=== PATIENT | male | born 1955 | race African-American/Black ===

== ENCOUNTER 2017-08-09 12:55 | Emergency (ER) | payer OTHER ==
[~2017-08-09] VITALS: Ht 177.8 cm; Wt 72.6 kg
[2017-08-09 13:00] VITALS: BP 150/92
[2017-08-09] MEDS ORDERED: NACL 0.9% 1,000 ML IV ONE ×2 (13:20→14:55)
--- NOTE | 2017-08-09 13:20 | NUR ---
PATIENT PRESENTS TO ED WITH generalized weakness,n/v/d, abdominal pain x1 wk . SKIN IS PINK/WARM/DRY; AAOX4 WITH EVEN AND STEADY GAIT; LUNGS CLEAR BL; HR EVEN AND REGULAR; PT DENIES ANY FEVER, CP, SOB, OR COUGH AT THIS TIME; PATIENT STATES PAIN OF 7/10 AT THIS TIME; VSS; PATIENT POSITIONED FOR COMFORT; HOB ELEVATED; BEDRAILS UP X2; BED DOWN. ER MD MADE AWARE OF PT STATUS.
--- NOTE | 2017-08-09 13:33 | NUR ---
unable to provide urine sample at this time
--- NOTE | 2017-08-09 13:48 | NUR ---
lab collected blood samples---x-ray at bedside
[2017-08-09 13:53] LABS: BASOPHILS # (AUTO) 0.1 K/uL (0.00-0.22); EOSINOPHILS # (AUTO) 0.1 K/uL (0-0.4); EOSINOPHILS % (AUTO) 0.7 % (0.0-4.0); HEMATOCRIT 34.2 % (36-52); HEMOGLOBIN 11.2 g/dL (12.0-18.0); LYMPHOCYTES # (AUTO) 1.7 K/uL (2.0-11.5); LYMPHOCYTES % (AUTO) 14.8 % (20.5-51.1); MEAN CORPUSCULAR HEMOGLOBIN 29 pg (27-31); MEAN CORPUSCULAR HGB CONC 33 g/dL (33-37); MEAN CORPUSCULAR VOLUME 87 fL (80-94); MONOCYTES # (AUTO) 0.4 K/uL (0.8-1.0); MONOCYTES % (AUTO) 3.6 % (1.7-9.3); NEUTROPHILS # (AUTO) 8.9 K/uL (1.8-7.7); NEUTROPHILS % (AUTO) 79.9 % (42.2-75.2); PLATELET COUNT (AUTO) 356 K/uL (140-450); RED BLOOD CELL COUNT(AUTO) 3.92 MIL/uL (4.20-6.10); RED CELL DISTRIBUTION WIDTH 13.5 % (11.6-13.7); WHITE BLOOD COUNT (AUTO) 11.3 K/uL (4.8-10.8)
--- NOTE | 2017-08-09 14:00 | NUR ---
pt taken to shower to wash off dried bowel movement from person----
[2017-08-09 14:02] LABS: CARBON DIOXIDE 26.8 mmol/L (21-32); POTASSIUM 3.8 mmol/L (3.5-5.1)
[2017-08-09 14:06] LABS: PROTHROMBIN TIME 10.3 secs (10.8-13.4)
[2017-08-09 14:08] LABS: ALBUMIN 2.6 g/dL (3.4-5.0); TOTAL BILIRUBIN 0.4 mg/dL (0.0-1.0)
--- NOTE | 2017-08-09 14:28 | NUR ---
returned from shower----pt's area and addis preciado
--- NOTE | 2017-08-09 14:38 | NUR ---
unable to provide urine sample at this time
--- NOTE | 2017-08-09 14:43 | NUR ---
encouraged pt to attempt to provide urine sample---pt became aggitated using profanity--- informed pt behaviour like that or abuse towards staff will not be tolerated. spoke with pt we understand he is not feeling well but verbal or any type of abuse towards staff will not be acceptable here. pt apologetic, stating "he is 62yrs old and he doesn't mess with any one nor any messes with him". educated pt in the need for the urine is to identified for infection and immediate treatment. also no need for the apologies simply not to repeat that type of beviour. pt agreed. pt accepted cups of water to induce need--preferred cold water.
[2017-08-09 15:24] VITALS: BP 131/85
--- NOTE | 2017-08-09 15:24 | NUR ---
Patient discharged with v/s stable. Written and verbal after care instructions given and explained. Patient alert, oriented and verbalized understanding of instructions. Ambulatory with steady gait. All questions addressed prior to discharge. ID band removed. Patient advised to follow up with PMD. Rx of Cipro and Imodium given. Patient educated on indication of medication including possible reaction and side effects. Opportunity to ask questions provided and answered. Patient given community resource packet.
== END 2017-08-09 15:24 | disposition home or self-care (01) ==
LOC: MED 12:55
DX: R19.7 Diarrhea, unspecified (principal); R53.1 Weakness; R11.2 Nausea with vomiting, unspecified; F17.200 Nicotine dependence, unspecified, uncomplicated; Z91.041 Radiographic dye allergy status
CPT/HCPCS: 36415; 71045; 80053; 82550; 82553; 83605; 83880; 84484; 85025; 85610; 85730; 87040; 93005; 96360; 99285; J7030; Q0092

== ENCOUNTER 2018-03-04 12:58 | Inpatient (IN) | payer OTHER ==
[~2018-03-04] VITALS: Ht 172.7 cm; Wt 74.8 kg
[2018-03-04 13:03] VITALS: BP 127/84
[2018-03-04] MEDS ORDERED: NACL 0.9% 500 ML IV SCH (13:57)
[2018-03-04] MEDS ORDERED: CLINDAMYCIN 900 MG in DEXTROSE 5% 100 ML IV ONE (14:00)
[2018-03-04] MEDS ORDERED: CLINDAMYCIN 900 MG/6 ML VIAL IV ONE (14:37)
[2018-03-04 16:40] LABS: BASOPHILS # (AUTO) 0.1 K/uL (0.00-0.22); BASOPHILS % (AUTO) 1.9 % (0.0-2.0); EOSINOPHILS # (AUTO) 0.2 K/uL (0-0.4); EOSINOPHILS % (AUTO) 3.3 % (0.0-4.0); HEMATOCRIT 30.9 % (36-52); HEMOGLOBIN 10.4 g/dL (12.0-18.0); LYMPHOCYTES # (AUTO) 1.2 K/uL (2.0-11.5); LYMPHOCYTES % (AUTO) 19.4 % (20.5-51.1); MEAN CORPUSCULAR HEMOGLOBIN 30 pg (27-31); MEAN CORPUSCULAR HGB CONC 34 g/dL (33-37); MEAN CORPUSCULAR VOLUME 88.1 fL (80-94); MONOCYTES # (AUTO) 0.7 K/uL (0.8-1.0); NEUTROPHILS # (AUTO) 3.8 K/uL (1.8-7.7); NEUTROPHILS % (AUTO) 64.4 % (42.2-75.2); PLATELET COUNT (AUTO) 232 K/uL (140-450)
[2018-03-04 16:49] LABS: ANION GAP 10.4 (8-16); CARBON DIOXIDE 29.6 mmol/L (21-32); CREATININE 1.5 mg/dL (0.7-1.3)
[2018-03-04 16:54] LABS: ALBUMIN 3.3 g/dL (3.4-5.0); TOTAL BILIRUBIN 0.3 mg/dL (0.0-1.0)
[2018-03-04] MEDS ORDERED: ONDANSETRON 4 MG/2 ML VIAL IVP PRN (17:15)
[2018-03-04] MEDS ORDERED: DEXTROSE 50% 50 ML SYR IVP PRN (17:15)
[2018-03-04] MEDS ORDERED: ACETAMINOPHEN 325 MG TAB PO PRN (17:15)
[2018-03-04] MEDS ORDERED: HYDROcodone/APAP 5/325 MG 1 TAB TAB PO PRN (17:15)
[2018-03-04] MEDS: NACL 0.9% 1,000 ML IV SCH (18:50)
[2018-03-04 19:00] VITALS: BP 151/96
[2018-03-04] MEDS: BLOOD GLUCOSE MONITORING 1 DEV DEV FS SCH (20:43)
[2018-03-04 21:31] LABS: APPEARANCE,URINE CLEAR (CLEAR); BILIRUBIN,URINE NEGATIVE (NEGATIVE); BLOOD, URINE NEGATIVE (NEGATIVE); COLOR,URINE YELLOW (YELLOW); LEUKOCYTE ESTERASE ,URINE NEGATIVE (NEGATIVE); NITRITE, URINE NEGATIVE (NEGATIVE); UGLUCOSE 3+ (NEGATIVE)
[2018-03-05 00:04] VITALS: BP 147/89
[2018-03-05] MEDS: NACL 0.9% 1,000 ML IV SCH ×3 (06:09→18:35)
[2018-03-05] MEDS: BLOOD GLUCOSE MONITORING 1 DEV DEV FS SCH ×4 (06:10→20:29)
[2018-03-05 07:46] LABS: BASOPHILS # (AUTO) 0.1 K/uL (0.00-0.22); BASOPHILS % (AUTO) 2.3 % (0.0-2.0); EOSINOPHILS # (AUTO) 0.3 K/uL (0-0.4); EOSINOPHILS % (AUTO) 4.7 % (0.0-4.0); HEMATOCRIT 31.9 % (36-52); HEMOGLOBIN 10.9 g/dL (12.0-18.0); LYMPHOCYTES # (AUTO) 1.3 K/uL (2.0-11.5); LYMPHOCYTES % (AUTO) 22.9 % (20.5-51.1); MEAN CORPUSCULAR HEMOGLOBIN 30 pg (27-31); MEAN CORPUSCULAR HGB CONC 34 g/dL (33-37); MEAN CORPUSCULAR VOLUME 87.5 fL (80-94); MONOCYTES # (AUTO) 0.6 K/uL (0.8-1.0); MONOCYTES % (AUTO) 10.4 % (1.7-9.3); NEUTROPHILS # (AUTO) 3.4 K/uL (1.8-7.7); NEUTROPHILS % (AUTO) 59.7 % (42.2-75.2); PLATELET COUNT (AUTO) 234 K/uL (140-450); RED BLOOD CELL COUNT(AUTO) 3.65 MIL/uL (4.20-6.10); RED CELL DISTRIBUTION WIDTH 13.6 % (11.6-13.7); WHITE BLOOD COUNT (AUTO) 5.7 K/uL (4.8-10.8)
[2018-03-05 08:00] VITALS: BP 155/82
[2018-03-05 08:10] LABS: ANION GAP 6.6 (8-16); CARBON DIOXIDE 30.3 mmol/L (21-32); POTASSIUM 4.9 mmol/L (3.5-5.1)
[2018-03-05] MEDS: glipiZIDE ER 5 MG TABER PO SCH (08:13)
[2018-03-05] MEDS: ENOXAPARIN 40 MG/0.4 ML SYR SUBQ SCH (08:17)
[2018-03-05 12:00] VITALS: BP 135/74
[2018-03-05] MEDS ORDERED: ceFAZolin 1,000 MG VIAL ONE (20:15)
[2018-03-05] MEDS: INSULIN LISPRO SLIDING SCALE 100 UNITS/ML VIAL SUBQ PRN (20:28)
[2018-03-05] MEDS ORDERED: VANCOMYCIN PER PHARMACY MC PRN (21:00)
[2018-03-05] MEDS ORDERED: VANCOMYCIN 1,000 MG VIAL ONE (21:25)
[2018-03-05] MEDS ORDERED: VANCOMYCIN 1,000 MG in NACL 0.9% 250 ML IV SCH (21:30)
[2018-03-06] VITALS: BP 148/84
[2018-03-06] MEDS: BLOOD GLUCOSE MONITORING 1 DEV DEV FS SCH ×2 (06:29→12:03)
[2018-03-06] MEDS: INSULIN LISPRO SLIDING SCALE 100 UNITS/ML VIAL SUBQ PRN (06:30)
[2018-03-06] MEDS: NACL 0.9% 1,000 ML IV SCH (07:26)
[2018-03-06 08:00] VITALS: BP 146/88
[2018-03-06] MEDS: glipiZIDE ER 5 MG TABER PO SCH (08:00)
[2018-03-06] MEDS ORDERED: metFORMIN 500 MG TAB PO SCH (08:00)
[2018-03-06] MEDS: ENOXAPARIN 40 MG/0.4 ML SYR SUBQ SCH (08:35)
[2018-03-06] MEDS ORDERED: VANCOMYCIN 750 MG in DEXTROSE 5% 250 ML IV SCH (09:00)
[2018-03-06] MEDS ORDERED: LISINOPRIL 10 MG TAB PO SCH (09:00)
[2018-03-06] MEDS ORDERED: THERAHONEY WOUND DRESSING TP SCH (13:00)
[2018-03-13] MEDS ORDERED: SIMV5TAB83 PO (10:25)
== END 2018-03-06 15:35 | disposition left against medical advice (07) | DRG 383 ==
LOC: MED 12:58 → MTU 17:19
PROVIDERS: ADMIT Internal Medicine; ATTEND Internal Medicine
DX: L03.115 Cellulitis of right lower limb (principal); N17.9 Acute kidney failure, unspecified; R65.10 Systemic inflammatory response syndrome (SIRS) of non-infectious origin without acute organ dysfunction; E11.9 Type 2 diabetes mellitus without complications; E78.5 Hyperlipidemia, unspecified; F12.90 Cannabis use, unspecified, uncomplicated; I10 Essential (primary) hypertension; E78.00 Pure hypercholesterolemia, unspecified; F17.210 Nicotine dependence, cigarettes, uncomplicated; Z53.21 Procedure and treatment not carried out due to patient leaving prior to being seen by health care provider; Z59.0 Homelessness; Z88.3 Allergy status to other anti-infective agents; Z91.048 Other nonmedicinal substance allergy status; Z79.84 Long term (current) use of oral hypoglycemic drugs; Z91.041 Radiographic dye allergy status
CPT/HCPCS: 36415; 73562; 80048; 80053; 81003; 82948; 83036; 85025; 87040; 87070; 87081; 87186; 90715; 93971; 96365; 99285; J0690; J1650; J1815; J3370; J3490; J7030; J7060; Q0092

== ENCOUNTER 2018-03-12 15:58 | Inpatient (IN) | payer OTHER ==
--- NOTE | 2018-03-08 21:00 | NUR ---
ZOCOR AND IV ABT GIEN ORDERED. PT F/S IS 211 , PT REFUSES COVERAGE. PT IS ON METFORMIN NO C/O OF PAINI OR DISTRESS,
[~2018-03-12] VITALS: Ht 175.3 cm; Wt 79.8 kg
[2018-03-12 16:05] VITALS: BP 108/69
--- NOTE | 2018-03-12 16:40 | NUR ---
63/M HOMELESS bib self with c/o right knee pain d/t to wound and right lower leg swelling. Patient was admitted here last week and AMA on 03/06/18. Patient denies any recent fevers, vomitting, or chills. hx--COPD, HTN, DM. AAOX4 WITH EVEN AND UNSTEADY GAIT; LUNGS CLEAR BL. PT DENIES ANY FEVER, CP, SOB, OR COUGH AT THIS TIME; PATIENT STATES PAIN OF 5/10 AT THIS TIME. PATIENT POSITIONED FOR COMFORT; HOB ELEVATED; BEDRAILS UP X2; BED DOWN. ER MD MADE AWARE OF PT STATUS.
[2018-03-12] MEDS ORDERED: NACL 0.9% 2,000 ML IV SCH (17:02)
[2018-03-12] MEDS ORDERED: PIPERACILLIN/TAZOBACTAM 3.375 GM in DEXT 5% MINI-BAG PLUS 50 ML IV ONE (17:05)
[2018-03-12] MEDS ORDERED: PIPERACILLIN/TAZOBACTAM 3.375 GM VIAL IV ONE (17:20)
[2018-03-12 18:04] LABS: BASOPHILS # (AUTO) 0.2 K/uL (0.00-0.22); BASOPHILS % (AUTO) 2.6 % (0.0-2.0); EOSINOPHILS # (AUTO) 0.1 K/uL (0-0.4); EOSINOPHILS % (AUTO) 2.4 % (0.0-4.0); HEMOGLOBIN 10.1 g/dL (12.0-18.0); LYMPHOCYTES # (AUTO) 1.6 K/uL (2.0-11.5); LYMPHOCYTES % (AUTO) 26.1 % (20.5-51.1); MEAN CORPUSCULAR HEMOGLOBIN 30 pg (27-31); MEAN CORPUSCULAR HGB CONC 34 g/dL (33-37); MEAN CORPUSCULAR VOLUME 88.1 fL (80-94); MONOCYTES # (AUTO) 0.6 K/uL (0.8-1.0); MONOCYTES % (AUTO) 10.4 % (1.7-9.3); NEUTROPHILS # (AUTO) 3.5 K/uL (1.8-7.7); NEUTROPHILS % (AUTO) 58.5 % (42.2-75.2); PLATELET COUNT (AUTO) 288 K/uL (140-450); RED BLOOD CELL COUNT(AUTO) 3.41 MIL/uL (4.20-6.10); RED CELL DISTRIBUTION WIDTH 14.2 % (11.6-13.7); WHITE BLOOD COUNT (AUTO) 6.1 K/uL (4.8-10.8)
[2018-03-12 18:21] LABS: PROTHROMBIN TIME 9.9 secs (10.8-13.4)
[2018-03-12 18:33] LABS: ACETONE, SERUM NEGATIVE (NEGATIVE)
[2018-03-12 18:34] LABS: ALBUMIN 3.4 g/dL (3.4-5.0); ANION GAP 7.7 (8-16); ASPARTATE AMINOTRANSFERASE 15 U/L (15-37); CARBON DIOXIDE 29.7 mmol/L (21-32); CHLORIDE 101 mmol/L (98-107); CREATININE 1.6 mg/dL (0.7-1.3); GFR ARICAN-AMERICAN 57 mL/min (>90); GLUCOSE 263 mg/dL (74-106); MAGNESIUM 2.1 mg/dL (1.8-2.4); POTASSIUM 4.4 mmol/L (3.5-5.1); SODIUM SERUM 134 mmol/L (136-145); TOTAL BILIRUBIN 0.4 mg/dL (0.0-1.0); UREA NITROGEN, BLOOD 19 mg/dL (7-18)
--- NOTE | 2018-03-12 18:44 | NUR ---
PT STATED UNABLE TO PROVIDE URINE AT THIS TIME.
--- NOTE | 2018-03-12 18:44 | NUR ---
Christianne amador in [facility] - 03/12/18 at 1849 by MED1 PT STATED UAABLE TO PROVIDE URINE AT THIS TIME.
--- NOTE | 2018-03-12 18:55 | NUR ---
Patient will be admitted to care of DR. FOUNTAIN. Admited to MED SURG. Will go to room 113. Belongings list completed. Report to SILVESTRE GARCIA.
--- NOTE | 2018-03-12 18:58 | NUR ---
pt taken to floor by khanh patricia and gordon hernandes
[2018-03-12 19:05] VITALS: BP 151/92
--- NOTE | 2018-03-12 19:05 | NUR ---
RECEIVED PT FROM ER NURSE ANITA-RADHA. PT AMBULATORY WITH CANE. AOX4, ON ROOM AIR WITH IV SITE ON RIGHT HAND 20G. ORIENTED PT TO ROOM, BATHROOM, BED, AND CALL LIGHT SYSTEM. DISCUSSED PLAN OF CARE AND PT VERBALIZED UNDERSTANDING. NO S/S OF RESPIRATORY DISTRESS OR DISCOMFORT NOTED AT THIS TIME. RIGHT KNEE CELLULITIS WITH 2+ PITTING EDEMA ON RIGHT LOWER EXTREMITY. BLEEDING SCAB NOTED ON LEFT FA. MRSA SWAB AND URINE COLLECTED. RX DRUGS COLLECTED. BED IN LOWEST POSITION, BED BREAKS ON, BOTH SIDE RAILS UP. BED SIDE TABLE AND CALL LIGHT ARE WITHIN REACH. WILL CONTINUE TO MONITOR.
--- NOTE | 2018-03-12 19:05 | NUR ---
VITAL SIGNS TAKEN AND TOLERATED WELL. ELEVATED BP NOTED. NO S/S OF RESPIRATORY DISTRESS OR DISCOMFORT NOTED AT THIS TIME. WILL CONTINUE TO MONITOR.
[2018-03-12 20:19] LABS: APPEARANCE,URINE CLEAR (CLEAR); BILIRUBIN,URINE NEGATIVE (NEGATIVE); BLOOD, URINE NEGATIVE (NEGATIVE); COLOR,URINE YELLOW (YELLOW); LEUKOCYTE ESTERASE ,URINE NEGATIVE (NEGATIVE); NITRITE, URINE NEGATIVE (NEGATIVE); PH,URINE 6.5 (5.0-9.0); UGLUCOSE 2+ (NEGATIVE)
[2018-03-12] MEDS ORDERED: ACETAMINOPHEN 325 MG TAB PO PRN (21:50)
[2018-03-12] MEDS ORDERED: HYDROcodone/APAP 5/325 MG 1 TAB TAB PO PRN (21:50)
[2018-03-12] MEDS ORDERED: INSULIN LISPRO SLIDING SCALE 100 UNITS/ML VIAL SUBQ SCH (21:55)
[2018-03-12] MEDS ORDERED: DEXTROSE 50% 50 ML SYR IVP PRN (21:55)
[2018-03-12] MEDS: NACL 0.9% 1,000 ML IV SCH (22:09)
--- NOTE | 2018-03-12 22:10 | NUR ---
BLOOD GLUCOSE 307- PT REFUSED INSULIN STATING, "I NEVER USE INSULIN, I TAKE METFORMIN." IVF HUNG AND TOLERATING WELL. NO S/S OF RESPIRATORY DISTRESS OR DISCOMFORT NOTED AT THIS TIME. WILL CONTINUE TO MONITOR.
[2018-03-12] MEDS ORDERED: INSULIN LISPRO SLIDING SCALE 100 UNITS/ML VIAL SUBQ PRN (23:50)
[2018-03-13] VITALS: BP 133/77
--- NOTE | 2018-03-13 | NUR ---
VITAL SIGNS TAKEN BY COMMERCIAL LOAN UNDERWRITER NURSE LUCILA. NO S/S OF RESPIRATORY DISTRESS OR DISCOMFORT NOTED AT THIS TIME. WILL CONTINUE TO MONITOR.
--- NOTE | 2018-03-13 | NUR ---
VITAL SIGNS TAKEN AND TOLERATED WELL. NO S/S OF RESPIRATORY DISTRESS OR DISCOMFORT NOTED AT THIS TIME. WILL CONTINUE TO MONITOR.
--- NOTE | 2018-03-13 02:00 | NUR ---
PT CONTINUE TO SLEEP AT THIS TIME. NO S/S OF RESPIRATORY DISTRESS OR DISCOMFORT NOTED AT THIS TIME. WILL CONTINUE TO MONITOR.
--- NOTE | 2018-03-13 04:00 | NUR ---
PT SLEEPING IN BED. NO S/S OF RESPIRATORY DISTRESS OR DISCOMFORT NOTED AT THIS TIME. WILL CONTINUE TO MONITOR.
[2018-03-13] MEDS ORDERED: PIPERACILLIN/TAZOBACTAM 3.375 GM VIAL IV ONE (04:49)
[2018-03-13] MEDS: PIPER/TAZO 3.375GM/D5W PREMIX 50 ML IV SCH ×3 (04:51→21:18)
--- NOTE | 2018-03-13 04:55 | NUR ---
SCHEDULED MEDICATION ZOSYN GIVEN AND TOLERATED WELL. NO S/S OF RESPIRATORY DISTRESS OR DISCOMFORT NOTED AT THIS TIME. WILL CONTINUE TO MONITOR.
[2018-03-13] MEDS: BLOOD GLUCOSE MONITORING 1 DEV DEV FS SCH ×4 (06:34→21:12)
--- NOTE | 2018-03-13 06:35 | NUR ---
BLOOD GLUCOSE 223- PT CONTINUES TO REFUSE INSULIN COVERAGE.
--- NOTE | 2018-03-13 07:29 | NUR ---
ENDORSED PT CARE TO DAY SHIFT NURSE SEEMA FOR CONTINUITY OF CARE.
[2018-03-13 07:50] LABS: BASOPHILS # (AUTO) 0.1 K/uL (0.00-0.22); BASOPHILS % (AUTO) 2.7 % (0.0-2.0); EOSINOPHILS # (AUTO) 0.2 K/uL (0-0.4); EOSINOPHILS % (AUTO) 3.6 % (0.0-4.0); HEMATOCRIT 29.7 % (36-52); HEMOGLOBIN 10.2 g/dL (12.0-18.0); LYMPHOCYTES # (AUTO) 1.6 K/uL (2.0-11.5); LYMPHOCYTES % (AUTO) 30.1 % (20.5-51.1); MEAN CORPUSCULAR HEMOGLOBIN 30 pg (27-31); MEAN CORPUSCULAR HGB CONC 34 g/dL (33-37); MONOCYTES # (AUTO) 0.5 K/uL (0.8-1.0); MONOCYTES % (AUTO) 9.6 % (1.7-9.3); NEUTROPHILS # (AUTO) 2.9 K/uL (1.8-7.7); PLATELET COUNT (AUTO) 255 K/uL (140-450); RED BLOOD CELL COUNT(AUTO) 3.38 MIL/uL (4.20-6.10); WHITE BLOOD COUNT (AUTO) 5.4 K/uL (4.8-10.8)
[2018-03-13 08:00] VITALS: BP 149/82
[2018-03-13 08:15] LABS: ALBUMIN 2.8 g/dL (3.4-5.0); ANION GAP 5.7 (8-16); CARBON DIOXIDE 29.7 mmol/L (21-32); CREATININE 1.1 mg/dL (0.7-1.3); POTASSIUM 4.4 mmol/L (3.5-5.1); TOTAL BILIRUBIN 0.4 mg/dL (0.0-1.0)
--- NOTE | 2018-03-13 09:05 | NUR ---
PATIENT HAS BEEN SCREENED AND CATEGORIZED HIGH NUTRITION RISK. PATIENT WILL BE SEEN WITHIN 1-2 DAYS OF ADMISSION. 03/13/18 03/14/[address]
[2018-03-13] MEDS: NACL 0.9% 1,000 ML IV SCH ×2 (09:45→17:50)
[2018-03-13] MEDS ORDERED: ASPI81CT89 PO (10:25)
[2018-03-13] MEDS ORDERED: SIMV5TAB1 PO (10:25)
[2018-03-13] MEDS ORDERED: METF500T PO (10:25)
[2018-03-13] MEDS ORDERED: LISI2.5T5 PO (10:25)
[2018-03-13] MEDS ORDERED: ATRMDI IH (10:25)
--- NOTE | 2018-03-13 11:14 | NUR ---
WOUND CARE EVALUATION NOTE: REASON FOR EVALUATION: RIGHT KNEE WOUND SKIN ASSESSMENT DONE WITH THIS 63 Y/O MALE PT ADMITTED TO [facility] WITH INITIAL DX RIGHT KNEE WOUND. PAST MEDICAL HX INCLUDES HTN, DM AND RIGHT KNEE WOUND MORE THAN ONE MONTH AGO. PT. WAS CONSULTED ABOUT A WEEK AGO AND AMA. ALL ABOVE INFORMATION OBTAINED FROM ADMISSION H&P AND PT. PT IS AAX4. LABS ARE WBC 5.4, H/H 10.2/29.7, GLUCOSE 214 AND ALBUMIN 2.8. PT IS AWAKE.PT. REFUSES TO BE ASSESSED OTHER PART OF BODY EXCEPT RLE. PLAN OF CARE DISCUSSED WITH PRIMARY NURSE AND PT. PT VERBALIZES UNDERSTANDING AND STATE THAT HE IS WILLING TO FOLLOW UP RECOMMENDATIONS THIS VISIT. INTEGUMENTARY: -RIGHT PATELLA WOUND 5.5X4 CM, WOUND BED 100% COVERED WITH SOFT, THICK, BROWN SLOUGH, SMALL AMOUNT PURULENT DRAINAGE FROM WOUND EDGE, MILD ODOR, HERMILA-WOUND SKIN WITH ERYTHREDEMA,PAIN 3/10 BEARABLE. RECOMMENDATIONS: -SURGEON CONSULT FOR DEBRIDEMENT -CLEANSE WITH WOUND CLEANSING SOLUTION PAT DRY, APPLY THERAHONEY SHEET AND COVER WITH DRY COMPOSITE DRESSING QD AND PRN IF SOILING -TURN AND REPOSITION Q2H -CONTINUE TO FOLLOW RD RECOMMENDATIONS ALL ABOVE RECOMMENDATIONS DISCUSSED WITH PRIMARY NURSE. WILL FOLLOW UP PT Q7-10 DAYS. PLEASE CONTACT WOUND CARE NURSE FOR ANY QUESTION AND CHANGE OF WOUND CONDITION. Addendum: 03/13/18 at 1125 by Agustín Gonzalez RN (Grace) -RIGHT KNEE SKIN ALTERATION WITH UN-KNOW ETIOLOGY ADD RECOMMENDATION: -WOUND CULTURE TO RIGHT KNEE WOUND -CLEANSE RIGHT KNEE WOUND WITH WOUND CLEANSING SOLUTION PAT DRY, APPLY THERAHONEY SHEET AND COVER WITH DRY COMPOSITE DRESSING QD AND PRN IF SOILING
--- NOTE | 2018-03-13 12:09 | NUR ---
Basin Finish Operator Tig Welder Note: Patient's tentative discharge plan is to transfer patient to [facility] facility for wound care. I faxed inquiries to [facility] facilities contracted with [facility], [phone], [facility] , and [facility] . Per Jolynn from [phone], unable to accept patient due to patient signing AMA previously [facility] *Per Uma from [facility] , patient has been accepted and may go to room 207, case operator Christina made aware.*
[2018-03-13] MEDS ORDERED: THERAHONEY GEL 42.5 GM TP PRN (12:10)
--- NOTE | 2018-03-13 12:37 | NUR ---
RECEIVED PT REPORT AT BEDSIDE. PT A&OX4. OPEN WOUND NOTED ON THE RIGHT KNEE, MILD DRAINAGE NOTED. NO C/O PAIN AT THIS TIME. BED LOWERED WITH CALL LIGHT WITHIN REACH. WILL CONTINUE TO MONITOR.
[2018-03-13] MEDS ORDERED: THERAHONEY WOUND DRESSING TP SCH (13:00)
--- NOTE | 2018-03-13 13:06 | NUR ---
Math And Sciences Department Chair Note: Patient's tentative discharge plan is to transfer patient to [facility] for wound care. Per Uma from [facility] , patient has been accepted and may go to room 207, accepting physician is , caser in Christina made aware. Electrocardiograph Technician Christina provided me with snf authorization from [facility] [id number], I provided this authorization number to Uma from [facility].
--- NOTE | 2018-03-13 13:27 | NUR ---
CM NOTE ADMISSION CHART REVIEW DONE. INITIAL REVIEW FAXED TO [facility] [phone] NASIR PH# [phone] PER [facility], IF PATIENT GOES TO SNF AUTH# [id number], FOR [facility] AUTH# [id number]
[2018-03-13] MEDS ORDERED: VANCOMYCIN PER PHARMACY MC PRN (13:50)
[2018-03-13] MEDS ORDERED: INSULIN LANTUS 100 UNITS/ML 10 ML VIAL SUBQ SCH (14:18)
--- NOTE | 2018-03-13 15:11 | NUR ---
03/13/18 RD INITIAL ASSESSMENT COMPLETED PLEASE REFER TO NUTRITION ASSESSMENT UNDER CARE ACTIVITY FOR ESTIMATED NUTRITIONAL NEEDS. 1. CONTINUE CCHO 60 DIET TOLERATED. 2. RECOMMEND OSORIO QD AND VIT. C [address] TO FOLLOW-UP 5-7 DAYS, LOW RISK. FAMILIA LACY, RD
[2018-03-13] MEDS: VANCOMYCIN 750 MG in NACL 0.9% 250 ML IV SCH (15:18)
--- NOTE | 2018-03-13 15:28 | NUR ---
PT REFUSING TO RECEIVE INSULIN COVERAGE.
--- NOTE | 2018-03-13 15:30 | NUR ---
PT REFUSING TO RECEIVE INSULIN. PT WAS EDUCATED ON RISKS OF NOT RECEIVING INSULIN, PT STATED "I DO NOT WANT TO TAKE IT."
[2018-03-13] MEDS ORDERED: NON-FORMULARY ITEM (Ipratropium Bromide* (Atrovent Hfa Mdi*) 2 PUFF) IH SCH (17:00)
--- NOTE | 2018-03-13 19:20 | NUR ---
PT REPORT GIVEN AT BEDSIDE. PT ENDORSED IN STABLE CONDITION.
--- NOTE | 2018-03-13 19:21 | NUR ---
RECEIVED REPORT FROM DAY SHIFT NURSE CAMERON-RN AT BEDSIDE. PT AMBULATORY WITH CANE. AOX4, ON ROOM AIR WITH IV SITE ON RIGHT HAND 20G. DISCUSSED PLAN OF CARE AND PT VERBALIZED UNDERSTANDING. NO S/S OF RESPIRATORY DISTRESS OR DISCOMFORT NOTED AT THIS TIME. RIGHT KNEE CELLULITIS WITH 2+ PITTING EDEMA ON RIGHT LOWER EXTREMITY. SCAB NOTED ON LEFT FA. BED IN LOWEST POSITION, BED BREAKS ON, BOTH SIDE RAILS UP. BED SIDE TABLE AND CALL LIGHT ARE WITHIN REACH. WILL CONTINUE TO MONITOR.
[2018-03-13] MEDS ORDERED: LIDOCAINE 1% 500 MG/50 ML VIAL INJ SCH (19:55)
[2018-03-13] MEDS ORDERED: MORPHINE SULFATE 4 MG/ML SYR IVP PRN (19:55)
[2018-03-13 20:00] VITALS: BP 134/73
--- NOTE | 2018-03-13 20:00 | NUR ---
VITAL SIGNS TAKEN AND TOLERATED WELL. BLOOD GLUCOSE 226- PT CONTINUES TO REFUSE INSULIN. NO S/S OF RESPIRATORY DISTRESS OR DISCOMFORT NOTED AT THIS TIME. WILL CONTINUE TO MONITOR.
--- NOTE | 2018-03-13 20:18 | NUR ---
SCHEDULED MEDICATION GIVEN AND TOLERATED WELL. NO S/S OF RESPIRATORY DISTRESS OR DISCOMFORT NOTED AT THIS TIME. WILL CONTINUE TO MONITOR.
[2018-03-13] MEDS: SIMVASTATIN 10 MG TAB PO SCH (21:17)
--- NOTE | 2018-03-13 22:00 | NUR ---
PT SLEEPING IN BED. NO S/S OF RESPIRATORY DISTRESS OR DISCOMFORT NOTED AT THIS TIME. WILL CONTINUE TO MONITOR.
--- NOTE | 2018-03-13 22:26 | NUR ---
UNABLE TO DO EKG AT 1849. DR ERICKSON DID PROCEDURE BEFORE EKG COULD BE DONE. RT'S WERE BUSY IN ER
[2018-03-14] VITALS: BP 134/72
[2018-03-14] MEDS: NACL 0.9% 1,000 ML IV SCH ×3 (00:18→23:50)
--- NOTE | 2018-03-14 00:20 | NUR ---
IVF HUNG AND AEROBIC WOUND CULTURE TAKEN. PT TOLERATED WELL. NO S/S OF RESPIRATORY DISTRESS OR DISCOMFORT NOTED AT THIS TIME. WILL CONTINUE TO MONITOR.
[2018-03-14] MEDS: ATROVENT HFA INH SCH ×6 (01:23→19:30)
[2018-03-14] MEDS: VANCOMYCIN 750 MG in NACL 0.9% 250 ML IV SCH ×2 (02:48→16:40)
--- NOTE | 2018-03-14 02:48 | NUR ---
SCHEDULED MEDICATION VANCOCIN GIVEN AND TOLERATED WELL. NO S/S OF RESPIRATORY DISTRESS OR DISCOMFORT NOTED AT THIS TIME. WILL CONTINUE TO MONITOR.
[2018-03-14] MEDS: PIPER/TAZO 3.375GM/D5W PREMIX 50 ML IV SCH ×3 (05:07→22:11)
--- NOTE | 2018-03-14 05:07 | NUR ---
SCHEDULED MEDICATION ZOSYN GIVEN AND TOLERATED WELL. NO S/S OF RESPIRATORY DISTRESS OR DISCOMFORT NOTED AT THIS TIME. WILL CONTINUE TO MONITOR.
--- NOTE | 2018-03-14 06:00 | NUR ---
BLOOD GLUCOSE 333- PT CONTINUES TO REFUSE INSULIN
[2018-03-14] MEDS: BLOOD GLUCOSE MONITORING 1 DEV DEV FS SCH ×4 (06:25→21:00)
--- NOTE | 2018-03-14 06:32 | NUR ---
SCHEDULED MEDICATION ATROVENT INHALER GIVEN AND TOLERATED WELL. NO S/S OF RESPIRATORY DISTRESS OR DISCOMFORT NOTED AT THIS TIME. WILL CONTINUE TO MONITOR.
--- NOTE | 2018-03-14 07:09 | NUR ---
ENDORSED PT CARE TO DAY SHIFT NURSE ALICE FOR CONTINUITY OF CARE. Addendum: 03/14/18 at 0731 by Brenda Frederick RN DISREGARD.
--- NOTE | 2018-03-14 07:20 | NUR ---
PT REPORT RECEIVED AT BEDSIDE. PT IS SLEEPING, BUT AROUSABLE, A&O X4. PT IS ON ROOM AIR, NO S/S OF DISTRESS NOTED. THE WOUND ON THE RIGHT KNEE IS COVERED WITH CLEAN, DRY DRESSING. NO C/O PAIN OR DISCOMFORT AT THIS TIME. BED IN LOW POSITION, CALL LIGHT WITHIN REACH.
--- NOTE | 2018-03-14 07:24 | NUR ---
ENDORSED PT CARE TO DAY SHIFT NURSE SEEMA FOR CONTINUITY OF CARE.
[2018-03-14 08:00] VITALS: BP 116/75
[2018-03-14] MEDS ORDERED: ASPIRIN 81 MG TAB.CHEW PO SCH (09:00)
[2018-03-14] MEDS ORDERED: NON-FORMULARY ITEM (Lisinopril 1 TAB) PO SCH (09:00)
[2018-03-14] MEDS: ENOXAPARIN 30 MG/0.3 ML SYR SUBQ SCH (09:00)
[2018-03-14] MEDS ORDERED: INSULIN LANTUS 100 UNITS/ML 10 ML VIAL SUBQ SCH (09:00)
[2018-03-14] MEDS: LISINOPRIL 5 MG TAB PO SCH (10:30)
[2018-03-14] MEDS: ASCORBIC ACID 500 MG TAB PO SCH (10:31)
--- NOTE | 2018-03-14 10:35 | NUR ---
BLOOD SUGAR CHECKED, 373. PT STILL REFUSING TO RECEIVE SCHEDULED LANTUS INSULIN. EXPLAINED TO THE PT RISK OF NOT HAVING BLOOD SUGAR CONTROLLED, PT STATES "I DON'T WANT INSULIN." PT REFUSED SCHEDULED ENOXAPARIN. RISKS OF NOT RECEIVING ENOXAPARIN EXPLAINED, PT STILL REFUSED.
--- NOTE | 2018-03-14 12:15 | NUR ---
PT ACCIDENTALLY PULLED OUT HIS IV, NEW IV INSERTED 22 GAUGE, RIGHT HAND.
[2018-03-14 12:50] LABS: BASOPHILS # (AUTO) 0.1 K/uL (0.00-0.22); BASOPHILS % (AUTO) 2.7 % (0.0-2.0); EOSINOPHILS # (AUTO) 0.2 K/uL (0-0.4); EOSINOPHILS % (AUTO) 2.9 % (0.0-4.0); HEMATOCRIT 32.2 % (36-52); HEMOGLOBIN 10.8 g/dL (12.0-18.0); LYMPHOCYTES # (AUTO) 1.4 K/uL (2.0-11.5); LYMPHOCYTES % (AUTO) 25.8 % (20.5-51.1); MEAN CORPUSCULAR HEMOGLOBIN 30 pg (27-31); MEAN CORPUSCULAR HGB CONC 34 g/dL (33-37); MONOCYTES # (AUTO) 0.4 K/uL (0.8-1.0); MONOCYTES % (AUTO) 6.7 % (1.7-9.3); NEUTROPHILS # (AUTO) 3.4 K/uL (1.8-7.7); NEUTROPHILS % (AUTO) 61.9 % (42.2-75.2); PLATELET COUNT (AUTO) 278 K/uL (140-450); RED BLOOD CELL COUNT(AUTO) 3.66 MIL/uL (4.20-6.10); RED CELL DISTRIBUTION WIDTH 13.8 % (11.6-13.7); WHITE BLOOD COUNT (AUTO) 5.6 K/uL (4.8-10.8)
[2018-03-14 13:09] LABS: ALBUMIN 2.8 g/dL (3.4-5.0); CARBON DIOXIDE 30.6 mmol/L (21-32); CREATININE 0.9 mg/dL (0.7-1.3); POTASSIUM 4.6 mmol/L (3.5-5.1); TOTAL BILIRUBIN 0.4 mg/dL (0.0-1.0)
--- NOTE | 2018-03-14 15:30 | NUR ---
PATIENT BEING EVALUATED BY PT
[2018-03-14 16:00] VITALS: BP 146/74
[2018-03-14] MEDS: metFORMIN 500 MG TAB PO SCH (16:38)
--- NOTE | 2018-03-14 17:00 | NUR ---
PT WOUND DRESSING CHANGED, PT TOLERATED WELL, NO C/O PAIN. PHOTO TAKEN, PLACED IN CHART.
--- NOTE | 2018-03-14 19:20 | NUR ---
PT REPORT GIVEN AT BEDSIDE. PT ENDORSED IN STABLE CONDITION. NO S/S OF DISTRESS. BED IN LOW POSITION AND CALL LIGHT WITHIN REACH.
--- NOTE | 2018-03-14 19:30 | NUR ---
RECEIVED, ENDORSEMENT FROM DAYSHIFT NURSE AT BEDSIDE FOR CONTINUITY OF CARE, PT IN STABLE CONDITION.
[2018-03-14] MEDS: SIMVASTATIN 10 MG TAB PO SCH (20:59)
--- NOTE | 2018-03-14 21:00 | NUR ---
PT SITTING UP IN BED AOX 4, DRESSING FOR WOUND DRY AND INTACT NO S/S OF PAIN OR DISTRESS NOTED. V/S FOLLOWS T 98.3 P 76 R 18 B/P 111/66 02 98% ON R/A. F/S 218. PT REFUSED TO HAVE INSULIN COVERAGE. PT EDUCATED REGARDING THE NEED FOR INSULIN. PT VERBALIZED UNDERSTANDING BUT CONTINUED TO REFUSE INSULIN.
--- NOTE | 2018-03-14 23:15 | NUR ---
PT IN BED HOB ELEVATED 45%. BED LOW SIDE RAILS UP AND CALL STEVENSON IN REACH. PT SLEEPING BUT AWOKEN WITH LIGHT TOUCH. NO S/S OF PAIN OR DISTRESS NOTED IV SITE INTACT WITH NO S/S OF INFILTRATION N/S RUNNING AT 100MLS/HR.
--- NOTE | 2018-03-15 01:00 | NUR ---
v/s as follows t 98.5 p 76 r 20 b/p 127/76 02 98% on r/a. pt has no s/s of pain or distress call casanova in reach.
[2018-03-15] MEDS: VANCOMYCIN 750 MG in NACL 0.9% 250 ML IV SCH ×2 (03:00→16:15)
[2018-03-15] MEDS: PIPER/TAZO 3.375GM/D5W PREMIX 50 ML IV SCH ×3 (05:45→21:00)
--- NOTE | 2018-03-15 06:00 | NUR ---
pt f/s was 255, however pt refused insulin coverage. pt is on oral metformin.
[2018-03-15] MEDS: BLOOD GLUCOSE MONITORING 1 DEV DEV FS SCH ×4 (06:50→21:00)
--- NOTE | 2018-03-15 07:30 | NUR ---
endorsement given to dayssdft nurse for continuity of care.
[2018-03-15 07:38] LABS: BASOPHILS # (AUTO) 0.2 K/uL (0.00-0.22); BASOPHILS % (AUTO) 2.5 % (0.0-2.0); EOSINOPHILS # (AUTO) 0.3 K/uL (0-0.4); EOSINOPHILS % (AUTO) 3.9 % (0.0-4.0); HEMATOCRIT 30.9 % (36-52); HEMOGLOBIN 10.4 g/dL (12.0-18.0); LYMPHOCYTES # (AUTO) 1.5 K/uL (2.0-11.5); LYMPHOCYTES % (AUTO) 22.3 % (20.5-51.1); MEAN CORPUSCULAR HEMOGLOBIN 30 pg (27-31); MEAN CORPUSCULAR HGB CONC 34 g/dL (33-37); MEAN CORPUSCULAR VOLUME 88.2 fL (80-94); MONOCYTES # (AUTO) 0.6 K/uL (0.8-1.0); MONOCYTES % (AUTO) 8.9 % (1.7-9.3); NEUTROPHILS # (AUTO) 4.1 K/uL (1.8-7.7); NEUTROPHILS % (AUTO) 62.4 % (42.2-75.2); PLATELET COUNT (AUTO) 268 K/uL (140-450); RED CELL DISTRIBUTION WIDTH 14.1 % (11.6-13.7); WHITE BLOOD COUNT (AUTO) 6.6 K/uL (4.8-10.8)
[2018-03-15 08:00] VITALS: BP 132/81
[2018-03-15 08:03] LABS: ALBUMIN 2.6 g/dL (3.4-5.0); CARBON DIOXIDE 29.3 mmol/L (21-32); CREATININE 0.9 mg/dL (0.7-1.3); POTASSIUM 4.3 mmol/L (3.5-5.1); TOTAL BILIRUBIN 0.2 mg/dL (0.0-1.0)
[2018-03-15] MEDS: metFORMIN 500 MG TAB PO SCH ×2 (08:51→17:27)
[2018-03-15] MEDS: LISINOPRIL 5 MG TAB PO SCH (08:51)
[2018-03-15] MEDS: ASCORBIC ACID 500 MG TAB PO SCH (08:51)
--- NOTE | 2018-03-15 08:57 | NUR ---
ADMINISTERED AM MEDS SCHEDULED TO PT. REFUSED HIS LEVONOX. EDUCATED HIM ON LEVONOX THAT ITS HIS BLOOD THINNER, REQUIRED FOR PT THAT ARE ON BEDREST, PREVENTS FROM FORMING BLOOD CLOT. DENIES MEDS. PT SITTING ON HIS BED, WATCHING TV. STATES HE CAN AMBULATE TO REST BY HIMSELF. ASKED HIM TO USE CALL LIGHT FOR ANY HELP, TO USE RESTROM. CALL LIGHT WITHIN REACH. NO SIGN OF DISTRESS NOTED. BED AT LOWER POSITION. WILL [id number] TO MONITOR PT.
[2018-03-15] MEDS ORDERED: INSULIN LANTUS 100 UNITS/ML 10 ML VIAL SUBQ SCH (09:00)
[2018-03-15] MEDS: ENOXAPARIN 30 MG/0.3 ML SYR SUBQ SCH (09:00)
[2018-03-15] MEDS: NACL 0.9% 1,000 ML IV SCH ×2 (09:50→19:50)
--- NOTE | 2018-03-15 12:11 | NUR ---
CHECKED ON PT. BS 278. REFUSED INSULIN. EDUCATED HIM THAT HIS BS IS HIGH NEEDS INSULIN. STATES TO DROP THE TOPIC, NOT COMPLIANCE WITH INSULIN COVERAGE. ADMINISTERED ZOSYN TI PT. WILL CONTINUE TO MONITOR PT.
[2018-03-15] MEDS: ATROVENT HFA INH SCH ×4 (13:15→19:30)
[2018-03-15 16:00] VITALS: BP 124/74
--- NOTE | 2018-03-15 16:30 | NUR ---
CHECKED ON PT. BS 238. DENIES INSULIN. EDUCATED ABOUT NEED OF INSULIN. STILL DENIES INSULIN. VS NORMAL NOTED. PT WALKING , DENIES PAIN ON HIS KNEE. WOUND NURSE AT BEDSIDE. WILL CONTINUE TO MONITOR PT.
--- NOTE | 2018-03-15 17:58 | NUR ---
WOUND CARE RE-EVALUATION NOTE REASON FOR RE-EVALUATION: S/P DEBRIDEMENT RIGHT KNEE WOUND. INTEGUMENTARY: -RIGHT PATELLA WOUND 5.5X4X0.2CM, WOUND BED 30% COVERED WITH SOFT YELLOW SLOUGH, SMALL AMOUNT SEROSANGUINEOUS DRAINAGE, WOUND EDGE WELL DEFINED, NO ODOR, HERMILA-WOUND SKIN SLIGHTLY ERYTHREDEMA, NO PAIN. RECOMMENDATIONS: -MAY HAVE SNF PLACEMENT FOR WOUND CARE UPON DISCHARGED -CLEANSE WITH WOUND CLEANSING SOLUTION PAT DRY, APPLY THERAHONEY SHEET AND COVER WITH DRY COMPOSITE DRESSING QD AND PRN IF SOILING -TURN AND REPOSITION Q2H -CONTINUE TO FOLLOW RD RECOMMENDATIONS ALL ABOVE RECOMMENDATIONS DISCUSSED WITH PRIMARY NURSE. WILL FOLLOW UP PT Q7-10 DAYS. PLEASE CONTACT WOUND CARE NURSE FOR ANY QUESTION AND CHANGE OF WOUND CONDITION.
--- NOTE | 2018-03-15 18:24 | NUR ---
CHECKED ON PT. IV PUMP BEEPING. FLUSHED BOTH LINE AND THE IV ACCESS SITE. PT DOESNT WANT TO START THE NEW IV LINE. EDUCATED HIM THAT VANCOMYCIN IS ESSENTIAL FOR HIS INFECTION TO BE TREATED. PT ASKING TO DISCONTINUE THE IV LINE. INFORMED THAT ITS FOR HIS INFECTION. WILL MONITOR THE IV INFUSING ON THE PT. PT ASKING THE ALTERNATE TO IV. INFORMED THAT IV MEDS MORE EFFECTIVE THAN PO FORM. WILL CONTINUE TO ACCESS THE IV INFUSION. WILL CONTINUE TO MONITOR PT.
--- NOTE | 2018-03-15 19:14 | NUR ---
ENDORSED PT TO PM NURSE. PT IN STABLE CONDITION.
--- NOTE | 2018-03-15 19:15 | NUR ---
RECEIVED ENDORSEMENT FROM SARAH GARCIA DAYSHIFT NURSE FOR CONTINUITY OF CARE. PT IN STABLE CONDITION.
[2018-03-15] MEDS: SIMVASTATIN 10 MG TAB PO SCH (21:55)
--- NOTE | 2018-03-16 01:00 | NUR ---
PT SLEEPING NO ADVERSE EFFECTS OF ABT, NO C/O VOICED V/S IN NORMAL LIMITS.
--- NOTE | 2018-03-16 03:00 | NUR ---
PT IN BED NO S/S OF PAIN OR DISTRESS IV SITE FLUSHED PATENT LITZY HESTER ORDERED.
[2018-03-16] MEDS: VANCOMYCIN 750 MG in NACL 0.9% 250 ML IV SCH (03:55)
--- NOTE | 2018-03-16 06:00 | NUR ---
PT VOIDED 750 OF YELLOW URINE IV RUNING ORDERED.
[2018-03-16] MEDS: PIPER/TAZO 3.375GM/D5W PREMIX 50 ML IV SCH ×2 (06:17→12:29)
[2018-03-16] MEDS: NACL 0.9% 1,000 ML IV SCH ×2 (06:21→15:50)
[2018-03-16] MEDS: BLOOD GLUCOSE MONITORING 1 DEV DEV FS SCH ×3 (06:24→16:30)
--- NOTE | 2018-03-16 07:20 | NUR ---
RECEIVED REPORT FROM THE NIGHTSHIFT NURSE AT BEDSIDE FOR CONTINUITY OF CARE. PT IS AWAKE AND ORIENTED. INTRODUCED MYSELF AND UPDATED THE BOARD. PT IS ON ROOM AIR. V/S WITHIN NORMAL RANGE. DENIES PAIN. PER BODY WIRER NURSE, PT AMBULATES WITH CANE. PT HAS KERLIX WRAP ON R KNEE. IT IS CLEAN AND INTACT. LBM 03/15. IV ON R WRIST 22G NS AT 100ML. HIGH PRESSURE ON PUMP. PER BODY WIRER, ITS POSITIONAL. PT REFUSED A NEW IV SITE. WILL CONTINUE TO MONITOR PT.
[2018-03-16] MEDS: ATROVENT HFA INH SCH ×3 (07:30→15:30)
[2018-03-16 08:00] VITALS: BP 140/68
[2018-03-16 08:31] LABS: BASOPHILS # (AUTO) 0.2 K/uL (0.00-0.22); BASOPHILS % (AUTO) 2.7 % (0.0-2.0); EOSINOPHILS # (AUTO) 0.3 K/uL (0-0.4); EOSINOPHILS % (AUTO) 4.3 % (0.0-4.0); HEMATOCRIT 28.7 % (36-52); HEMOGLOBIN 9.9 g/dL (12.0-18.0); LYMPHOCYTES # (AUTO) 1.9 K/uL (2.0-11.5); LYMPHOCYTES % (AUTO) 28.9 % (20.5-51.1); MEAN CORPUSCULAR HEMOGLOBIN 31 pg (27-31); MEAN CORPUSCULAR HGB CONC 35 g/dL (33-37); MEAN CORPUSCULAR VOLUME 88.5 fL (80-94); MONOCYTES # (AUTO) 0.6 K/uL (0.8-1.0); MONOCYTES % (AUTO) 8.6 % (1.7-9.3); NEUTROPHILS # (AUTO) 3.6 K/uL (1.8-7.7); NEUTROPHILS % (AUTO) 55.5 % (42.2-75.2); PLATELET COUNT (AUTO) 251 K/uL (140-450); RED BLOOD CELL COUNT(AUTO) 3.24 MIL/uL (4.20-6.10); WHITE BLOOD COUNT (AUTO) 6.5 K/uL (4.8-10.8)
[2018-03-16] MEDS: LISINOPRIL 5 MG TAB PO SCH (08:59)
[2018-03-16] MEDS: metFORMIN 500 MG TAB PO SCH ×2 (09:00→17:55)
[2018-03-16] MEDS: ENOXAPARIN 30 MG/0.3 ML SYR SUBQ SCH ×2 (09:00→09:02)
[2018-03-16] MEDS: ASCORBIC ACID 500 MG TAB PO SCH (09:00)
--- NOTE | 2018-03-16 09:05 | NUR ---
ADMINISTERED MORNING SCHEDULED MED. PT REFUSED LOVENOX. EDUCATED PT RE MED AND RISK OF NOT GETTING IT. PT VERBALIZED UNDERSTANDING. REFUSED INHALER. PT TOLERATED WELL. WILL CONTINUE TO MONITOR PT.
[2018-03-16 09:17] LABS: ALBUMIN 2.5 g/dL (3.4-5.0); ANION GAP 8.7 (8-16); CARBON DIOXIDE 29.7 mmol/L (21-32); CREATININE 0.9 mg/dL (0.7-1.3); POTASSIUM 4.4 mmol/L (3.5-5.1); TOTAL BILIRUBIN 0.3 mg/dL (0.0-1.0)
--- NOTE | 2018-03-16 10:14 | NUR ---
General Practice Note: [place] [facility] [place], accepting physician is , patient's nurse Meggan made aware. Addendum: 03/16/18 at 1014 by Vicky Ortiz SS General Practice Note: [place] [facility] [place] [facility], accepting physician is , patient's nurse Meggan made aware.
--- NOTE | 2018-03-16 11:30 | NUR ---
REFUSED BS CHECK.
--- NOTE | 2018-03-16 12:09 | NUR ---
CM NOTE SPOKE WITH [facility] AND GAVE HER A VERBAL CLINICAL UPDATE PH# [phone]
--- NOTE | 2018-03-16 14:00 | NUR ---
DR FOUNTAIN IS HERE TO SEE PT. PT TO BE D/C TO [facility]. WILL AWAIT D/C ORDERS AND START D/C PROCESS.
[2018-03-16] MEDS ORDERED: SULF-59 PO (14:11)
[2018-03-16] MEDS ORDERED: VANCOMYCIN 1GM/DEXT 5% PREMIX 200 ML IV SCH (15:00)
--- NOTE | 2018-03-16 15:04 | NUR ---
ARRANGED TRANSPORT WITH [facility] PROVIDED AUTHORIZATION , NEXT UROLOGIST MD TIME WILL BE 1829.
--- NOTE | 2018-03-16 16:30 | NUR ---
PT REFUSED BS CHECK.
--- NOTE | 2018-03-16 18:30 | NUR ---
ASKED PT IF IT WAS OK TO DO WOUND CARE AND TAKE PICTURE OF WOUND FOR D/C. PT REFUSED. "DON'T BOTHER ME." WILL CONTINUE TO MONITOR PT.
--- NOTE | 2018-03-16 18:34 | NUR ---
GAVE REPORT TO RADHA HAWKINS AT [facility]. [phone]. [facility] DR ROJAS ACCEPTING.
--- NOTE | 2018-03-16 19:00 | NUR ---
D/C INSTRUCTIONS GIVEN TO PT. PT VERBALIZED UNDERSTANDING. REMOVED IV AND ID BANDS. WILL GET DRESSED AND GATHER PERSONAL BELONGINGS. PREFERS TO GO IN HIS CLOTHES, [facility] GOWN. WANTS TO GO OUT FOR A SMOKE. I ADVISED HIM NO...
--- NOTE | 2018-03-16 19:15 | NUR ---
[facility] IS HERE WITH [facility]ELCHA[facility]. PT IS IN STABLE CONDITION. ALL PERSONAL BELONGINGS WITH PT. PT IS IN STABLE CONDITION.
== END 2018-03-16 19:15 | DRG 384 ==
LOC: MED 15:58 → MTU 18:26
PROVIDERS: ADMIT Hospitalist; ATTEND Hospitalist
PROC: 0JBN0ZZ Excision of Right Lower Leg Subcutaneous Tissue and Fascia, Open Approach (ICD-10-PCS; principal; 2018-03-13)
DX: S81.001A Unspecified open wound, right knee, initial encounter (principal); N17.9 Acute kidney failure, unspecified; L03.115 Cellulitis of right lower limb; E87.1 Hypo-osmolality and hyponatremia; B95.62 Methicillin resistant Staphylococcus aureus infection as the cause of diseases classified elsewhere; E11.9 Type 2 diabetes mellitus without complications; I10 Essential (primary) hypertension; J44.9 Chronic obstructive pulmonary disease, unspecified; X58.XXXA Exposure to other specified factors, initial encounter; Z91.041 Radiographic dye allergy status; Z91.048 Other nonmedicinal substance allergy status; Z87.891 Personal history of nicotine dependence; Z91.19 Patient's noncompliance with other medical treatment and regimen; Y93.89 Activity, other specified; Y92.89 Other specified places as the place of occurrence of the external cause; Y99.8 Other external cause status; Z79.84 Long term (current) use of oral hypoglycemic drugs
CPT/HCPCS: 36415; 71045; 73564; 73590; 80053; 80202; 81003; 82009; 82140; 82553; 82948; 83605; 83735; 83874; 84100; 85025; 85379; 85610; 85730; 87040; 87070; 87081; 87086; 87186; 93971; 96361; 96365; 97116; 97162; 97163-GP; 99285; G0482; J1650; J1815; J2270; J2543; J3370; J7030; J7060; Q0092